=== PATIENT | female | born 1990 | race Caucasian/White ===

== ENCOUNTER → 2019-05-12 | Outpatient (CLI) | payer BC ==
[2016-04-07 17:10] VITALS: BP 137/68
[~2019-05-12] MED LIST: PRED-220 PO
--- NOTE | 2019-05-12 14:27 | RAD ---
Examination: Frontal view of the abdomen HISTORY: History of abdominal pain COMPARISON: None available FINDINGS: Nonspecific bowel gas pattern. Moderate amount of feces and gas noted in the colon.Intrauterine contraceptive device projects in the pelvis IMPRESSION: Nonspecific bowel gas pattern. Moderate amount of feces and gas noted in the colon correlate for constipation. Electronically signed by: Manuel Carroll MD (05/12/2019 2:24 PM) [email or web address]
== END | disposition home or self-care (01) ==
LOC: PMG 11:19
PROVIDERS: ATTEND Physician Assistant Medical
DX: K59.00 Constipation, unspecified (principal); Z97.5 Presence of (intrauterine) contraceptive device
CPT/HCPCS: 74018

== ENCOUNTER → 2022-02-04 | Outpatient (CLI) | payer BC ==
[2016-04-07 17:10] VITALS: BP 137/68
--- NOTE | 2022-02-04 11:56 | RAD ---
XR ABDOMEN 2V History: Abdominal pain Comparison: CT abdomen and pelvis 09/08/2017. Abdomen radiograph 05/12/2019 Technique: Upright and supine radiographs of the abdomen. Findings: Bowel gas pattern: Normal. Free air: None. Abnormal calcifications: None. Bones: No acute findings. Other: An intrauterine device projects in the central pelvis. The lung bases are clear. Impression: 1. No acute abdominal findings. Electronically signed by: Kashif Rodríguez MD (02/04/2022 11:54 AM) [id number]
== END ==
LOC: RAD 11:20
PROVIDERS: ATTEND Physician Assistant
DX: R10.9 Unspecified abdominal pain (principal)
CPT/HCPCS: 74019